=== PATIENT | male | born 1985 | race African-American/Black ===

== ENCOUNTER 2024-08-31 06:19 | Emergency (ER) | payer OTHER ==
[2024-08-31 06:30] VITALS: BMI 30.1
[2024-08-31] MEDS ORDERED: MECLIZINE HCL 25 MG TABLET (FP) ONE (08:14)
[2024-08-31] MEDS: MECLIZINE HCL 25 MG TABLET (FP) PO ONE (08:23)
[2024-08-31 08:48] LABS: BASO % 0.7 % (0-2.0); EOS % 0.6 % (0-4.5); HEMATOCRIT 44.5 % (35.4-49); HEMOGLOBIN 14.3 GM/dL (11.7-16.9); LYMPH % 51.8 % (8-40); MCH 27.4 pg (25.7-33.7); MCHC 32.2 g/dl (32.0-35.9); MEAN PLT VOLUME 7.5 fl (7.5-11.1); MONO % 5.7 % (3.8-10.2); NEUT % 41.2 % (42.8-82.8); PLATELET COUNT 272 10^3/uL (134-434); RBC 5.24 M/mm3 (4.00-5.60); RDW 12.7 % (11.9-15.9); WHITE BLOOD COUNT 5.8 K/mm3 (4.0-10.0)
[2024-08-31 08:54] LABS: POTASSIUM 4.4 mmol/L (3.5-5.1)
[2024-08-31 08:58] LABS: ALBUMIN 3.9 g/dl (3.4-5.0); BLOOD UREA NITROGEN 10.5 mg/dL (7-18); CALCIUM 9.5 mg/dL (8.5-10.1)
[2024-08-31 09:01] LABS: CREATININE 1.1 mg/dL (0.55-1.3)
[2024-08-31 09:03] LABS: TOT PROT 7.6 g/dl (6.4-8.2)
[2024-08-31 10:40] VITALS: BP 147/100; PULSE 82; RESP 16; TEMP 98
== END 2024-08-31 10:43 | disposition home or self-care (01) ==
LOC: JER 06:19
DX: R42 Dizziness and giddiness (principal)
CPT/HCPCS: 36415; 80053; 83735; 85025; 93005; 93010; 99284-25